=== PATIENT | female | born 1990 | race Caucasian/White ===

== ENCOUNTER 2016-09-24 05:28 | Inpatient (IN) | payer OTHER ==
[~2016-09-24] VITALS: Ht 162.6 cm; Wt 86.6 kg
[~2016-09-24 05:28] MED LIST: ACYC400T2 PO; CITA40TA13 PO; LAMO25TA2 PO
[2016-09-24] MEDS ORDERED: Oxytocin 10 Unit/mL Inj IM PRN ×2 (05:50→08:45)
[2016-09-24] MEDS ORDERED: Oxytocin 30 Units/500 mL LR 30 UNITS in IV Premix 1 EACH IV PRN (05:50)
[2016-09-24] MEDS ORDERED: Sodium Chloride LOK Flush 10 mL Syringe IVFLUSH PRN (05:50)
[2016-09-24] MEDS ORDERED: Penicillin G K Inj 5,000,000 UNITS in Dextrose 5% Minibag Plus 100 ML IV ONE (05:50)
[2016-09-24] MEDS ORDERED: Methylergonovine 0.2 mg/mL Inj IM PRN ×2 (05:50→08:45)
[2016-09-24] MEDS ORDERED: Hemorrhage Kit, Post Partum XX ONE ×2 (05:50→08:45)
[2016-09-24] MEDS ORDERED: Carboprost 250 mCg/mL Inj IM PRN ×2 (05:50→08:45)
[2016-09-24] MEDS ORDERED: Lactated Ringer's 1,000 ML IV PRN (05:50)
[2016-09-24 06:31] LABS: Mean Corpuscular Hemoglobin 29.5 pg (27.0-35.0); Mean Corpuscular Volume 89.1 fL (81-100)
[2016-09-24] MEDS ORDERED: Atropine 1 mg/10 mL (Code) Syringe IVPUSH PRN (06:45)
[2016-09-24] MEDS ORDERED: EPHEDrine Sulfate 50 mg/mL Inj IVPUSH PRN (06:45)
[2016-09-24] MEDS ORDERED: Ondansetron 2 mg/mL 2 mL Inj IVPUSH PRN (06:45)
[2016-09-24] MEDS ORDERED: Lactated Ringer's 1,000 ML IV SCH ×2 (06:45→08:43)
[2016-09-24] MEDS ORDERED: fentaNYL 2 mCg/mL-Bupiv 0.125% 100 ML EPIDURAL SCH (06:45)
[2016-09-24] MEDS ORDERED: Lactated Ringer's 500 ML IV ONE (06:45)
--- NOTE | 2016-09-24 06:58 | PCM.HPOB ---
Subjective Date of Service: September 24, 2016 Referring Provider: Admitting Physician: Ernesto Palacio MD Primary Care Physician: [facility] Attending Physician: Ernesto Palacio MD Chief Complaint Contractions History of Present History of Present Illness 26 Y/O at 39w2d WALT 09/29/16 by first trimester US. Contractions stronger in the last 2 hours made cervical change from 2.5 cm in exam last night at Triage room visit. At presentation cervix is 4 cm and less then 1 hour later cervix 8-9 cm/intact. Past Medical History Obstetrical History: G1: induced AB G2 December 2011 under epidural at 40 w1d , 8lb 15 oz , F. Gynecologic History: Regular menstrual cycles. Medical History: Bipolar Asthma H/O preeclampsia H/O Genital HSV, on supression , denies lesions , denies prodromal symptoms. H/O meth use , stopped 2014 , multiple UDS negative during . smoker Surgical History: Feet surgery Hx Tobacco Use: Yes Hx Alcohol Use: No Hx Substance Use: No (in the past used Meth ) Past Family History Family History Mother: MS FHx of Colon and breast CA. Allergy Coded Allergies: Sulfa (Sulfonamide Antibiotics) (Verified Allergy, Severe, swells up and can't breathe, 09/06/14) Exam Vital Signs FHT 130 moderate variability positive accelerations and no decelerations. [place]: Q2 min VSS Constitutional: Well-developed HEENT: Atraumatic Lungs: Clear to Auscultation Heart: Regular Rate/Rhythm, Normal S1, Normal S2 Abdomen: Gravid Extremities: Pulses Palpable x4 Neurological/Psychiatric: Alert, Oriented X3 Additional Information cervix 8-9 cm Intact No lesions by sterile speculum exam Labs/Diagnostics Maternal Blood Type: O (post ) Group B Strep Results: Positive Rubella: Immune OB Intrapartum Assessment/Plan Assessment 26 Y/O at 39 w2d Precipitous Labor complicated with: Bipolar Asthma H/O preeclampsia H/O Genital HSV, on supression , denies lesions , denies prodromal symptoms. H/O meth use , stopped 2014 , multiple UDS negative during . smoker Pain Management: anticipate Ernesto Palacio MD September 24, 2016 06:58
[2016-09-24] MEDS ORDERED: Sodium Chloride LOK Flush 10 mL Syringe IVFLUSH SCH (08:30)
[2016-09-24] MEDS ORDERED: LANOlin HPA 7 Gm Ointment TOPICAL PRN (08:45)
[2016-09-24] MEDS: Witch Hazel-Glycerin Pads TOPICAL PRN (09:06)
--- NOTE | 2016-09-24 09:44 | NUR ---
received SW referral. LVM for SPIDER ASSEMBLER
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
[2016-09-24] MEDS ORDERED: Penicillin G K Inj 3,000,000 UNITS in IV Premix 1 EACH IV SCH (12:30)
--- NOTE | 2016-09-24 16:00 | OP ---
[address] [address] OPERATIVE REPORT PATIENT: BREE MARRERO : 1990 MR#: [id number] ADMIT: 09/24/2016 JOB ID: [id number] DATE OF SURGERY: 09/24/2016 SURGEON: Keyonna Malave MD. PREOPERATIVE DIAGNOSIS(ES): POSTOPERATIVE DIAGNOSIS(ES): DELIVERY NOTE: The patient is a 26-year-old, 3, para 1-0-1-1, who presented at 39 weeks and two days with an estimated due date of September 29, 2016. She presented to the [facility] with contractions that she reported starting around 4 o'clock in the morning. She had a history of a precipitous delivery with her last and was found to be 4 cm. Less than 1 hour later she was 8-9 cm and membranes were intact. Her membranes were ruptured at 9 cm, and the patient had a rapid vaginal delivery at 0720 hours. The placenta was delivered intact with three-vessel cord at 0737. There was no nuchal cord. The infant's weight was 3646 g with Apgars of 8 and 9. Male in a cephalic presentation. On inspection of the vagina, cervix and perineum, there was a left labial laceration. The left labia was already partially detached from a previous delivery. It was torn at its base. This was reapproximated in a running fashion with 3-0 Vicryl. There was a pinhole in the labia that was reapproximated with an interrupted suture of 0 Vicryl. Otherwise, good hemostasis assured. All lap, instrument and needle counts correct x2 at the end of the procedure. FREIGHT ELEVATOR OPERATOR AT THE TIME OF DELIVERY: Keyonna Malave MD. ANESTHESIA: Local lidocaine.
[2016-09-24] MEDS: Ascorbic Acid 500 mg Tablet PO SCH (20:58)
--- NOTE | 2016-09-25 07:31 | PCM.DIMED ---
Discharge Instructions Date of Service September 25, 2016 Dates of Hospitalization September 24, 2016 at 05:51 Diet Discharge Diet: No restrictions Activity Discharge Activity: No restrictions Call your provider Call your provider for: Fever or Chills, Shortness of breath, Bleeding, Chest pain, Vomitting, Excessive diarrhea, Weakness (unilateral) Patient Instructions Follow-up with PCP in: 6 weeks Zaire Wheatley MD September 25, 2016 07:31
[2016-09-25] MEDS ORDERED: DOCU-41 PO (07:34)
[2016-09-25] MEDS ORDERED: IBUP800T28 PO (07:34)
[2016-09-25] MEDS ORDERED: FERR-74 PO (07:34)
[2016-09-25] MEDS ORDERED: lamoTRIgine 25 mg Tablet PO ONE (07:35)
--- NOTE | 2016-09-25 08:01 | DIS ---
[address] [address] DISCHARGE SUMMARY PATIENT: BREE MARRERO : 1990 MR#: [id number] ADMIT: 09/24/2016 JOB ID: [id number] DIS: ADMITTING DIAGNOSIS: A 26-year-old, 3, para 1, at 39 weeks and 2 days in active labor. DISCHARGE DIAGNOSIS: A 26-year-old, 3, para 2, status post spontaneous vaginal delivery at term. HOSPITAL COURSE: The patient is a 26-year-old, 3, para 2 now, who presented to Labor and Delivery in the morning of September 24, 2016 with a complaint of contractions that started at 4 o'clock in the morning. She was ladi every 3 minutes. On pelvic exam, the cervix was found to be 4 cm dilated. She was admitted for delivery. She quickly progressed in labor and underwent spontaneous vaginal delivery very rapid at 7:20 a.m. There were no complications. Delivered male with weight 3646 g and Apgars 8 at 1 minute and 9 at 5 minutes. The patient had mild labial laceration that was repaired with 3-0 Vicryl. The patient has a history of substance use and a seizure disorder. She was placed on Lamictal since her admission to the hospital and was getting throughout her hospital stay. Also she has a history of genital herpes and acyclovir was prescribed for herpes prevention. On day 1, the patient was doing well, ambulating, breast-feeding, did not have any excessive bleeding and no significant complaints of pain. Pain management was provided with Motrin only. The vitals were stable. Temperature 36.7, blood pressure 118/72, respiratory rate 18. The exam was benign. The uterine fundus was firm. There was no vaginal bleeding, no abnormal vaginal discharge. The patient was discharged home on day 1, September 25, 2016 with all discharge criteria met. DISCHARGE MEDICATIONS: She received discharge medications includin. Motrin 800 mg p.o. q.i.d. p.r.n. for pain. 2. Ferrous sulfate 325 mg p.o. b.i.d. 3. Colace 100 mg p.o. b.i.d. The follow up visit in OB clinic is scheduled in 6 weeks.
[2016-09-25 08:04] LABS: Mean Corpuscular Hemoglobin 29.7 pg (27.0-35.0); Mean Corpuscular Volume 89.3 fL (81-100)
[2016-09-25] MEDS: Ascorbic Acid 500 mg Tablet PO SCH (08:20)
[2016-09-25] MEDS: Witch Hazel-Glycerin Pads TOPICAL PRN (08:20)
[2016-09-25 08:42] VITALS: BP 126/69; PULSE 83; RESP 17
== END 2016-09-25 09:21 | disposition home or self-care (01) | DRG 775 ==
LOC: FBCO 05:28 → FBC 05:51
PROVIDERS: ADMIT Obstetrics & Gynecology; ATTEND Obstetrics & Gynecology
PROC: 10E0XZZ Delivery of Products of Conception, External Approach (ICD-10-PCS; principal; 2016-09-24)
PROC: 0HQ9XZZ Repair Perineum Skin, External Approach (ICD-10-PCS; 2016-09-24)
DX: O70.0 First degree perineal laceration during delivery (principal); G40.909 Epilepsy, unspecified, not intractable, without status epilepticus; F17.200 Nicotine dependence, unspecified, uncomplicated; O75.89 Other specified complications of labor and delivery; O99.334 Smoking (tobacco) complicating childbirth; Z3A.39 39 weeks gestation of pregnancy; Z37.0 Single live birth